=== PATIENT | female | born 1990 | race Caucasian/White ===

== ENCOUNTER 2018-09-20 19:04 | Inpatient (IN) | payer MEDICARE, MEDICAID ==
[~2018-09-20] VITALS: Ht 165.1 cm; Wt 107.0 kg
[~2018-09-20 19:04] MED LIST: NOCURR
[2018-09-20 19:58] VITALS: BP 110/65
[2018-09-20] MEDS ORDERED: HALOPERIDOL 5 MG TABLET PO PRN (21:30)
[2018-09-20] MEDS ORDERED: ZOLPIDEM TARTRATE 10 MG TABLET PO PRN (21:30)
[2018-09-20] MEDS ORDERED: LORazepam 2 MG TABLET PO PRN (21:30)
[2018-09-21 01:01] VITALS: BP 112/62
[2018-09-21 01:02] VITALS: BP 112/62
[2018-09-21] MEDS ORDERED: ONDANSETRON HCL 4 MG TABLET PO PRN (06:00)
[2018-09-21] MEDS ORDERED: MAGNESIUM HYDROXIDE SUSPENSION 30 ML UDCUP PO PRN (06:00)
[2018-09-21] MEDS ORDERED: ACETAMINOPHEN 325 MG TABLET PO PRN (06:00)
[2018-09-21] MEDS ORDERED: DOCUSATE SODIUM 100 MG CAPSULE PO PRN (06:00)
[2018-09-21] MEDS ORDERED: MAG HYDROX/AL HYDROX/SIMETH ES 30 ML SUSPENSION UDCUP PO PRN (06:00)
[2018-09-21] MEDS ORDERED: LOPERAMIDE HCL 2 MG CAPSULE PO PRN (06:00)
[2018-09-21] MEDS ORDERED: NICOTINE 14 MG/24 HOUR PATCH TD PRN (06:00)
[2018-09-21] MEDS ORDERED: GuaiFENesin/D-METHORPHAN [SUGAR-FREE] 200-20MG/10 ML SYRUP UDCUP PO PRN (06:00)
[2018-09-21] MEDS ORDERED: IBUPROFEN 400 MG TABLET PO PRN (06:00)
[2018-09-21] MEDS ORDERED: PETROLATUM,WHITE 71 GM JELLY TP PRN (06:00)
[2018-09-21] MEDS ORDERED: ALBUTEROL SULFATE HFA 90 MCG/PUFF 8 GM INHALER IH PRN (06:00)
[2018-09-21] MEDS ORDERED: CloNIDine HCL 0.1 MG TABLET PO PRN (06:00)
[2018-09-21 08:49] LABS: BASOPHILS % (AUTO) 0.3 % (0.0-2.0); HEMATOCRIT 35.8 % (36-46); HEMOGLOBIN 11.6 g/dL (12.0-16.0); LYMPHOCYTES # (AUTO) 2.9 K/uL (1.0-4.8); LYMPHOCYTES % (AUTO) 31.4 % (22.0-44.0); MEAN CORPUSCULAR HEMOGLOBIN 28.1 pg (26.0-34.0); MEAN CORPUSCULAR HGB CONC 32.2 G/dL (31.0-37.0); MEAN CORPUSCULAR VOLUME 87 fL (80-100); MONOCYTES # (AUTO) 0.9 K/uL (0.1-1.0); MONOCYTES % (AUTO) 9.4 % (2.0-9.0); NEUTROPHILS # (AUTO) 5.3 K/uL (1.8-7.7); NEUTROPHILS % (AUTO) 57.9 % (40.0-70.0); PLATELET COUNT (AUTO) 484 K/uL (150-450); RED BLOOD CELL COUNT(AUTO) 4.11 MIL/uL (4.00-5.20); RED CELL DISTRIBUTION WIDTH 15.6 % (11.5-14.5)
[2018-09-21] MEDS: RisperiDONE 1 MG TABLET PO SCH ×2 (08:52→17:08)
[2018-09-21 08:58] LABS: ALANINE AMINOTRANSFERASE 13 U/L (12-78); ALBUMIN 2.9 g/dL (3.4-5.0); ALKALINE PHOSPHATASE 63 U/L (46-116); ANION GAP 7 mmol/L (8-16); ASPARTATE AMINOTRANSFERASE 15 U/L (15-37); BILIRUBIN,TOTAL 0.1 mg/dL (0.1-1.0); CALCIUM, TOTAL 8.7 mg/dL (8.8-10.5); CARBON DIOXIDE 27 mmol/L (22-29); CHLORIDE 108 mmol/L (98-107); CHOL/HDL RATIO 2.9 (3.9-5.7); CHOLESTEROL 120 mg/dL (131-200); CREATININE 0.65 mg/dL (0.60-1.30); FREE T4 (FREE THYROXINE) 0.92 ng/dL (0.76-1.46); GLOMERULAR FILTR. RATE CALC > 60 mL/min (>60); GLUCOSE,RANDOM 99 mg/dL (70-110); HCG,QUANTITATIVE < 1 mIU/mL (0-6); HDL CHOLESTEROL 42 mg/dL (40-60); LDL CHOL (CALC.) 71 mg/dL (0-130); POTASSIUM 3.8 mmol/L (3.5-5.1); SODIUM SERUM 142 mmol/L (136-145); THYROID STIMULATING HORMONE 0.47 uIU/mL (0.36-3.74); TOTAL PROTEIN, SERUM 6.6 g/dL (6.4-8.2); TRIGLYCERIDES 36 mg/dL (15-150); UREA NITROGEN, BLOOD 13 mg/dL (7-18)
[2018-09-21 09:27] LABS: HEMOGLOBIN A1C 5.7 % (4.5-6.2)
[2018-09-21 13:19] VITALS: BP 93/60
[2018-09-21 17:27] VITALS: BP 104/67
[2018-09-22 03:54] VITALS: BP 106/65
[2018-09-22 08:10] VITALS: BP 109/61
[2018-09-22 08:34] LABS: HEMOGLOBIN A1C 5.6 % (4.5-6.2)
[2018-09-22] MEDS: RisperiDONE 1 MG TABLET PO SCH ×2 (08:40→16:35)
[2018-09-22 09:07] LABS: THYROID STIMULATING HORMONE 0.51 uIU/mL (0.36-3.74)
[2018-09-22] MEDS ORDERED: HALOPERIDOL LACTATE 5 MG/ML VIAL ONE (13:08)
[2018-09-22] MEDS ORDERED: LORazepam 2 MG/ML VIAL ONE (13:08)
[2018-09-22] MEDS ORDERED: DiphenhydrAMINE HCL 50 MG/ML VIAL ONE (13:08)
[2018-09-22] MEDS ORDERED: LORazepam 2 MG/ML VIAL IM ONE (13:30)
[2018-09-22] MEDS ORDERED: HALOPERIDOL LACTATE 5 MG/ML VIAL IM ONE (13:30)
[2018-09-22] MEDS ORDERED: DiphenhydrAMINE HCL 50 MG/ML VIAL IM ONE (13:30)
[2018-09-22] MEDS: FERROUS SULFATE 325 MG EC TABLET PO SCH (16:35)
[2018-09-23 00:42] VITALS: BP 108/66
[2018-09-23] MEDS: FERROUS SULFATE 325 MG EC TABLET PO SCH ×2 (06:59→16:04)
[2018-09-23] MEDS: RisperiDONE 1 MG TABLET PO SCH ×2 (09:08→16:04)
[2018-09-23 16:10] VITALS: BP 103/67
[2018-09-24 05:51] VITALS: BP 106/65
[2018-09-24] MEDS: FERROUS SULFATE 325 MG EC TABLET PO SCH ×2 (06:05→16:37)
[2018-09-24 08:44] VITALS: BP 108/65
[2018-09-24] MEDS: RisperiDONE 1 MG TABLET PO SCH ×2 (10:46→16:37)
[2018-09-24 16:13] VITALS: BP 105/65
[2018-09-25 06:26] VITALS: BP 116/80
[2018-09-25] MEDS: FERROUS SULFATE 325 MG EC TABLET PO SCH (06:31)
[2018-09-25] MEDS: RisperiDONE 1 MG TABLET PO SCH (08:03)
[2018-09-25 08:21] VITALS: BP 104/64
[2018-09-25] MEDS ORDERED: FERR-89 PO (13:15)
[2018-09-25] MEDS ORDERED: RISP1TAB89 PO (13:15)
== END 2018-09-25 13:40 | disposition home or self-care (01) | DRG 885 ==
LOC: B2X 20:00
PROVIDERS: ADMIT Psychiatry & Neurology Child & Adolescent Psychiatry; ATTEND Psychiatry & Neurology Child & Adolescent Psychiatry
DX: F29 Unspecified psychosis not due to a substance or known physiological condition (principal); E66.9 Obesity, unspecified; Z68.39 Body mass index [BMI] 39.0-39.9, adult; D64.9 Anemia, unspecified; F22 Delusional disorders; G47.00 Insomnia, unspecified; F41.9 Anxiety disorder, unspecified; Z79.899 Other long term (current) drug therapy
CPT/HCPCS: 83036; 84439; 84443; J1200; J1630; J2060